=== PATIENT | female | born 1985 | race Two or more races ===

== ENCOUNTER 2021-01-24 09:54 | Observation (INO) | payer MEDICAID ==
[2021-01-24] MEDS ORDERED: Famotidine 20 MG/2 ML SDV IVPUSH ONE (10:12)
[2021-01-24] MEDS ORDERED: Sodium Chloride 0.9% 1,000 ML IV ONE (10:12)
[2021-01-24] MEDS ORDERED: Ondansetron 4 MG/2 ML SDV IVPUSH ONE (10:12)
[2021-01-24] MEDS ORDERED: Sodium Chloride 0.9% 10 ML Syringe FLUSH PRN (10:12)
--- NOTE | 2021-01-24 10:32 | EDM.PDOC ---
ED HPI GENERAL MEDICAL PROBLEM - General Chief Complaint: Gastrointestinal Problem Stated Complaint: [facility] Time Seen by Provider: 01/24/21 10:11 Source of Information: Reports: Patient History Limitations: Reports: No Limitations - History of Present Illness INITIAL COMMENTS - FREE TEXT/NARRATIVE: 35 yo F with vomiting and dizziness this morning. She states she felt fine yesterday. This morning she woke up and felt very nauseated, had many episodes of vomiting. She also had some mild diarrhea. Mild lower abdominal cramping in context of her current menses. Still feels very nauseated. Feels weak/dizzy. No ear pain or tinnitus. No recent illness. No known provoking factor. No fever. No known ill contacts. No cough/SOB. No dysuria. Unable to tolerate PO liquids this morning. 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: Social & Family History - Tobacco Use Tobacco Use Status *Q: Never Tobacco User - Recreational Drug Use Recreational Drug Use: No ED ROS GENERAL - Review of Systems Review Of Systems: See Below Constitutional: Denies: Fever HEENT: Reports: No Symptoms Respiratory: Denies: Cough Cardiovascular: Reports: No Symptoms Endocrine: Reports: Fatigue GI/Abdominal: Reports: Nausea, Vomiting : Denies: Dysuria Musculoskeletal: Reports: No Symptoms Skin: Reports: No Symptoms Neurological: Reports: Dizziness Psychiatric: Reports: No Symptoms Hematologic/Lymphatic: Reports: No Symptoms Immunologic: Reports: No Symptoms ED EXAM, GI/ABD - Physical Exam Exam: See Below Exam Limited By: No Limitations General Appearance: Alert, WD/WN, No Apparent Distress Eyes: Bilateral: Normal Appearance, Nystagmus (horizontal, constant) Ears: Normal External Exam Nose: Normal Inspection Throat/Mouth: Normal Inspection, Normal Lips, Normal Voice Head: Atraumatic, Normocephalic Neck: Normal Inspection, Supple Respiratory/Chest: No Respiratory Distress, No Accessory Muscle Use, Chest Non- Tender Cardiovascular: Normal Peripheral Pulses, Regular Rate, Rhythm, No Edema GI/Abdominal Exam: Soft, Non-Tender, No Distention Extremities: Normal Inspection Neurological: Alert, Oriented, CN II-XII Intact, Normal Cognition, Other (difficult to assess coordination as she remains very dizzy) Psychiatric: Normal Affect, Normal Mood Skin Exam: Warm, Dry, Intact, Normal Color Course - Vital Signs Last Recorded V/S: Last Vital Signs Temp 35.6 C L 01/24/21 10:02 Pulse 73 01/24/21 10:02 Resp 18 01/24/21 10:02 BP 122/71 01/24/21 10:02 Pulse Ox 98 01/24/21 10:02 - Orders/Labs/Meds Orders: Active Orders 24 hr Category Date Time Status Peripheral IV Care [RC] . DIRECTED Care 01/24/21 10:12 Active Peripheral IV Care [RC] . DIRECTED Care 01/24/21 10:12 Active Sodium Chloride 0.9% [Saline Flush] Med 01/24/21 10:12 Active 10 ml FLUSH ASDIRECTED PRN Peripheral IV Insertion Adult [OM.PC] Routine Oth 01/24/21 10:12 Ordered Medication Orders Sodium Chloride (Sodium Chloride 0.9% 10 Ml Syringe) 10 ml FLUSH ASDIRECTED PRN PRN Reason: Keep Vein Open Last Admin: 01/24/21 10:19 Dose: 10 ml Documented by: LEONELA Labs: Laboratory Tests 01/24/21 01/24/21 01/24/21 Range/Units 10:30 10:30 13:25 WBC 6.05 (3.98-10.04) K/mm3 RBC 4.80 (3.98-5.22) M/mm3 Hgb 10.0 L (11.2-15.7) gm/dl Hct 33.4 L (34.1-44.9) % MCV 69.6 L D (79.4-94.8) fl MCH 20.8 L (25.6-32.2) pg MCHC 29.9 L (32.2-35.5) g/dl RDW Std Deviation 47.0 H (36.4-46.3) fL Plt Count 218 (182-369) K/mm3 MPV 10.2 (9.4-12.3) fl Neut % (Auto) 81.7 H (34.0-71.1) % Lymph % (Auto) 12.9 L (19.3-51.7) % [place] % (Auto) 4.8 (4.7-12.5) % Eos % (Auto) 0.3 L (0.7-5.8) Baso % (Auto) 0.3 (0.1-1.2) % Neut # (Auto) 4.94 (1.56-6.13) K/mm3 Lymph # (Auto) 0.78 L (1.18-3.74) K/mm3 [place] # (Auto) 0.29 (0.24-0.36) K/mm3 Eos # (Auto) 0.02 L (0.04-0.36) K/mm3 Baso # (Auto) 0.02 (0.01-0.08) K/mm3 Manual Slide Review Abnormal smear Sodium 141 (136-145) mEq/L Potassium 3.4 L (3.5-5.1) mEq/L Chloride 106 (98-107) mEq/L Carbon Dioxide 26 (21-32) mEq/L Anion Gap 12.4 (5-15) BUN 9 (7-18) mg/dL Creatinine 0.9 (0.55-1.02) mg/dL Est Cr Clr Drug Dosing 77.01 mL/min Estimated GFR (MDRD) > 60 (>60) mL/min BUN/Creatinine Ratio 10.0 L (14-18) Glucose 139 H (70-99) mg/dL Calcium 8.3 L (8.5-10.1) mg/dL Magnesium 1.9 (1.8-2.4) mg/dL Total Bilirubin 0.6 (0.2-1.0) mg/dL AST 37 (15-37) U/L ALT 17 (14-59) U/L Alkaline Phosphatase 89 (46-116) U/L Total Protein 7.6 (6.4-8.2) g/dl Albumin 3.5 (3.4-5.0) g/dl Globulin 4.1 gm/dL Albumin/Globulin Ratio 0.9 L (1-2) Lipase 65 L (73-393) U/L HCG, Quant < 1.0 mIU/mL Urine Color [place] H (Yellow) Urine Appearance Cloudy H (Clear) Urine pH 6.0 (5.0-8.0) Ur Specific [place] 1.025 (1.005-1.030) Urine Protein 1+ H (Negative) Urine Glucose (UA) Negative (Negative) Urine Ketones Negative (Negative) Urine Occult Blood 3+ H (Negative) Urine Nitrite Negative (Negative) Urine Bilirubin 1+ H (Negative) Urine Urobilinogen 1.0 (0.2-1.0) Ur Leukocyte Esterase Negative (Negative) Urine RBC Too numerous to cnt H (0-5) /hpf Urine WBC 0-5 (0-5) /hpf Ur Squamous Epith Cells 0-5 (0-5) /hpf Urine Bacteria Few (FEW) /hpf Urine Mucus Few (FEW) /hpf Meds: Medications Generic Name Dose Route Start Last Admin Trade Name Freq PRN Reason Stop Dose Admin Sodium Chloride 10 ml 01/24/21 10:12 01/24/21 10:19 Sodium Chloride 0.9% 10 Ml Syringe FLUSH 10 ml ASDIRECTED PRN Administration Keep Vein Open Discontinued Medications Generic Name Dose Route Start Last Admin Trade Name Freq PRN Reason Stop Dose Admin Famotidine 20 mg 01/24/21 10:12 01/24/21 10:19 Famotidine 20 Mg/2 Ml Sdv IVPUSH 01/24/21 10:13 20 mg ONETIME ONE Administration Sodium Chloride 1,000 mls @ 1,000 mls/hr 01/24/21 10:12 01/24/21 10:19 Normal Saline IV 01/24/21 11:11 1,000 mls/hr ONETIME ONE Administration Promethazine HCl 12.5 mg/ 50.5 mls @ 100 mls/hr 01/24/21 11:50 01/24/21 12:06 Sodium Chloride IV 01/24/21 12:20 100 mls/hr ONETIME ONE Administration Meclizine HCl 12.5 mg 01/24/21 13:32 01/24/21 13:36 Meclizine 12.5 Mg Tab PO 01/24/21 13:33 12.5 mg ONETIME ONE Administration Ondansetron HCl 4 mg 01/24/21 10:12 01/24/21 10:19 Ondansetron 4 Mg/2 Ml Sdv IVPUSH 01/24/21 10:13 4 mg ONETIME ONE Administration - Re-Assessments/Exams Free Text/Narrative Re-Assessment/Exam: 01/24/21 11:51 Labs unremarkable. No vomiting in the ED after zofran/IV fluids but still feels nauseated. Will give phenergan and reassess. Continues to deny headache or abdominal pain. 01/24/21 14:21 Continues to have marked dizziness. She continues to have significant horizontal nystagmus. She is too dizzy to walk. We will further eval with MRI brain. 01/24/21 16:36 Given persistent severe vertigo with no improvement s/p fluids/meds, we proceeded with MRI brain which showed no acute abnormality. She continues to be dizzy and unsteady on her feet. Discussed with hospitalist Dr. Valderrama who agrees to admit the patient. Departure - Departure Time of Disposition: 15:58 Disposition: Admitted As Inpatient 64 Clinical Impression: Vertigo Nausea & vomiting Qualifiers: Vomiting type: unspecified Vomiting Intractability: non-intractable Qualified Code(s): R11.2 - Nausea with vomiting, unspecified - Discharge Information Prescriptions: Meclizine [Antivert] 25 mg PO Q6H PRN #24 tab PRN Reason: Dizziness Ondansetron [Ondansetron ODT] 4 mg PO Q6H PRN #12 tab.rapdis PRN Reason: Nausea/Vomiting Referrals: Moni Kendall [Primary Care Provider] - Forms: ED Department Discharge Additional Instructions: 1. Drink plenty of fluids. Start with clear liquids, such as gatorade, pedialyte, sprite, water, broth, etc. Once nausea improves try bland foods. 2. Take ondansetron as prescribed for nausea. 3. Follow up with your regular doctor when able. 4. Return to the ED if you have severe nausea/vomiting, abdominal pain, headache, fever, or other concerning symptoms. Sepsis Event Note (ED) - Evaluation Sepsis Screening Result: No Definite Risk - Focused Exam Vital Signs: Vital Signs Temp Pulse Resp BP Pulse Ox 01/24/21 10:02 35.6 C L 73 18 122/71 98 - My Orders Last 24 Hours: My Active Orders 01/24/21 10:12 Peripheral IV Care [RC] . DIRECTED Peripheral IV Care [RC] . DIRECTED Sodium Chloride 0.9% [Saline Flush] 10 ml FLUSH ASDIRECTED PRN Peripheral IV Insertion Adult [OM.PC] Routine - Assessment/Plan Last 24 Hours: My Active Orders 01/24/21 10:12 Peripheral IV Care [RC] . DIRECTED Peripheral IV Care [RC] . DIRECTED Sodium Chloride 0.9% [Saline Flush] 10 ml FLUSH ASDIRECTED PRN Peripheral IV Insertion Adult [OM.PC] Routine
[2021-01-24] MEDS ORDERED: Promethazine 12.5 MG in Sodium Chloride 0.9% 50 ML IV ONE (11:50)
[2021-01-24] MEDS ORDERED: Meclizine 12.5 MG Tab PO ONE (13:32)
--- NOTE | 2021-01-24 15:15 | MR ---
MRI brain Technique: T1 sagittal; T2, T2 FLAIR, T1 and diffusion axial; T1 FLAIR coronal images were obtained. Thin sections through the internal auditory canals were obtained utilizing gradient echo imaging. Comparison: No prior intracranial imaging is available. Findings: Ventricles along with basal cisterns and sulci over the convexities are within normal limits for the patient's age. Artifact is noted from the right facial structures presumably due to dental hardware. No abnormal signal is appreciated within the ventricular system. No midline shift or mass-effect is seen. There are no acute diffusion abnormalities being seen. Internal auditory canal shows no discrete abnormality. Visualized paranasal sinuses and mastoid sinuses show nothing acute. Impression: 1. Slight artifact as noted above which does not interfere with intracranial imaging. 2. Other portions of the MRI study of the brain appear within normal limits. No etiology is identified to explain the patient's severe vertigo. Diagnostic code #1
[2021-01-24] MEDS ORDERED: LORazepam 0.5 MG Tab PO PRN (16:50)
[2021-01-24] MEDS ORDERED: Acetaminophen 325 MG Tab PO PRN (16:50)
[2021-01-24] MEDS ORDERED: Ondansetron 4 MG Tab.DIS PO PRN (16:50)
[2021-01-24] MEDS ORDERED: Ondansetron 4 MG/2 ML SDV IV PRN (16:50)
--- NOTE | 2021-01-24 16:50 | PCM.HP.2 ---
H&P History of Present Illness - General Date of Service: 01/24/21 Admit Problem/Dx: Dizziness with nausea and vomiting and dehydration. Source of Information: Patient History Limitations: Reports: No Limitations - History of Present Illness Initial Comments - Free Text/Narative: The patient is a 35-year-old lady who has presented to the emergency department out of concern for severe dizziness. The patient reports that her symptoms started yesterday evening suddenly with dizziness. The patient also had severe nausea and vomiting associated with this. The patient has denied any fever or chills. The patient is not taking any medications currently. She has denied tobacco or alcohol use. The patient says that the symptoms have improved when her eyes are closed. Onset of Symptoms: Reports: Sudden Duration of Symptoms: Reports: Day(s): Location: Reports: Generalized Severity: Moderate Improves with: Reports: Other (Closing eyes) Worsens with: Reports: Movement Associated Symptoms: Reports: Nausea/Vomiting - Related Data Allergies/Adverse Reactions: Allergies Allergy/AdvReac Type Severity Reaction Status Date / Time No Known Allergies Allergy Verified 01/24/21 10:08 Home Medications: Home Meds Meclizine [Antivert] 25 mg PO Q6H PRN #24 tab 01/24/21 [Rx] Ondansetron [Ondansetron ODT] 4 mg PO Q6H PRN #12 tab.rapdis 01/24/21 [Rx] Past Medical History - Past Health History Medical/Surgical History: Denies Medical/Surgical History HEENT History: Reports: None Cardiovascular History: Reports: None Respiratory History: Reports: None Gastrointestinal History: Reports: None 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 History: Reports: 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: Musculoskeletal History: Reports: None Neurological History: Reports: None Psychiatric History: Reports: None Endocrine/Metabolic History: Reports: None Hematologic History: Reports: None Immunologic History: Reports: None Dermatologic History: Reports: None Social & Family History - Tobacco Use Tobacco Use Status *Q: Never Tobacco User - Alcohol Use Alcohol Use History: No - Recreational Drug Use Recreational Drug Use: No - Living Situation & Occupation Living situation: Reports: , with Spouse Occupation: Unemployed H&P Review of Systems - Review of Systems: Review Of Systems: See Below General: Reports: Weakness HEENT: Reports: Vertigo Pulmonary: Reports: No Symptoms Cardiovascular: Reports: No Symptoms Gastrointestinal: Reports: Nausea, Vomiting 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: Reports: No Symptoms Musculoskeletal: Reports: No Symptoms Skin: Reports: No Symptoms Psychiatric: Reports: No Symptoms Neurological: Reports: Dizziness Hematologic/Lymphatic: Reports: No Symptoms Immunologic: Reports: No Symptoms Exam - Exam Exam: See Below - Vital Signs Vital Signs: Last Vital Signs Temp 35.6 C L 01/24/21 10:02 Pulse 73 01/24/21 10:02 Resp 18 01/24/21 10:02 BP 122/71 01/24/21 10:02 Pulse Ox 98 01/24/21 10:02 Weight: 104.326 kg - Exam Quality Assessment: No: Supplemental Oxygen, DVT Prophylaxis General: Alert, Oriented, Cooperative, Mild Distress HEENT: Conjunctiva Clear, EACs Clear, Hearing Intact, PERRLA. No: EOMI (Slow horizontal nystagmus both eyes), Mucosa Moist & [place] (Dry) Neck: Supple, Trachea Midline Lungs: Clear to Auscultation, Normal Respiratory Effort Cardiovascular: Regular Rate, Regular Rhythm GI/Abdominal Exam: Normal Bowel Sounds, Soft, Non-Tender, No Distention (Female) Exam: Deferred Rectal (Female) Exam: Deferred Back Exam: Normal Inspection, Full Range of Motion Extremities: Normal Inspection, Normal Range of Motion, No Pedal Edema Skin: Warm, Dry, Intact Neurological: Cranial Nerves Intact, Strength Equal Bilateral, Normal Speech. No: Normal Gait, Focal Deficit Neuro Extensive - Mental Status: Alert, Oriented x3, Normal Mood/Affect, Memory Intact Psychiatric: Alert, Normal Affect, Normal Mood - Patient Data Lab Results Last 24 hrs: Laboratory Results - last 24 hr 01/24/21 01/24/21 01/24/21 Range/Units 10:30 10:30 13:25 WBC 6.05 (3.98-10.04) K/mm3 RBC 4.80 (3.98-5.22) M/mm3 Hgb 10.0 L (11.2-15.7) gm/dl Hct 33.4 L (34.1-44.9) % MCV 69.6 L D (79.4-94.8) fl MCH 20.8 L (25.6-32.2) pg MCHC 29.9 L (32.2-35.5) g/dl RDW Std Deviation 47.0 H (36.4-46.3) fL Plt Count 218 (182-369) K/mm3 MPV 10.2 (9.4-12.3) fl Neut % (Auto) 81.7 H (34.0-71.1) % Lymph % (Auto) 12.9 L (19.3-51.7) % [place] % (Auto) 4.8 (4.7-12.5) % Eos % (Auto) 0.3 L (0.7-5.8) Baso % (Auto) 0.3 (0.1-1.2) % Neut # (Auto) 4.94 (1.56-6.13) K/mm3 Lymph # (Auto) 0.78 L (1.18-3.74) K/mm3 [place] # (Auto) 0.29 (0.24-0.36) K/mm3 Eos # (Auto) 0.02 L (0.04-0.36) K/mm3 Baso # (Auto) 0.02 (0.01-0.08) K/mm3 Manual Slide Review Abnormal smear Sodium 141 (136-145) mEq/L Potassium 3.4 L (3.5-5.1) mEq/L Chloride 106 (98-107) mEq/L Carbon Dioxide 26 (21-32) mEq/L Anion Gap 12.4 (5-15) BUN 9 (7-18) mg/dL Creatinine 0.9 (0.55-1.02) mg/dL Est Cr Clr Drug Dosing 77.01 mL/min Estimated GFR (MDRD) > 60 (>60) mL/min BUN/Creatinine Ratio 10.0 L (14-18) Glucose 139 H (70-99) mg/dL Calcium 8.3 L (8.5-10.1) mg/dL Magnesium 1.9 (1.8-2.4) mg/dL Total Bilirubin 0.6 (0.2-1.0) mg/dL AST 37 (15-37) U/L ALT 17 (14-59) U/L Alkaline Phosphatase 89 (46-116) U/L Total Protein 7.6 (6.4-8.2) g/dl Albumin 3.5 (3.4-5.0) g/dl Globulin 4.1 gm/dL Albumin/Globulin Ratio 0.9 L (1-2) Lipase 65 L (73-393) U/L HCG, Quant < 1.0 mIU/mL Urine Color [place] H (Yellow) Urine Appearance Cloudy H (Clear) Urine pH 6.0 (5.0-8.0) Ur Specific [place] 1.025 (1.005-1.030) Urine Protein 1+ H (Negative) Urine Glucose (UA) Negative (Negative) Urine Ketones Negative (Negative) Urine Occult Blood 3+ H (Negative) Urine Nitrite Negative (Negative) Urine Bilirubin 1+ H (Negative) Urine Urobilinogen 1.0 (0.2-1.0) Ur Leukocyte Esterase Negative (Negative) Urine RBC Too numerous to cnt H (0-5) /hpf Urine WBC 0-5 (0-5) /hpf Ur Squamous Epith Cells 0-5 (0-5) /hpf Urine Bacteria Few (FEW) /hpf Urine Mucus Few (FEW) /hpf Result Diagrams: 01/24/21 10:30 01/24/21 10:30 Sepsis Event Note - Evaluation Sepsis Screening Result: No Definite Risk - Focused Exam Vital Signs: Vital Signs Temp Pulse Resp BP Pulse Ox 01/24/21 10:02 35.6 C L 73 18 122/71 98 - Problem List (1) Vertigo SNOMED Code(s): 634051861 ICD Code: R42 - DIZZINESS AND GIDDINESS Status: Acute Priority: High Current Visit: Yes (2) Dehydration SNOMED Code(s): 30493741 ICD Code: E86.0 - DEHYDRATION Status: Acute Priority: High Current Visit: Yes (3) Anemia SNOMED Code(s): 327877251 ICD Code: D64.9 - ANEMIA, UNSPECIFIED Status: Acute Current Visit: Yes Problem Details: Microcytic, hypochromatic Qualifiers: Anemia type: iron deficiency Iron deficiency anemia type: unspecified iron deficiency Qualified Code(s): D50.9 - Iron deficiency anemia, unspecified (4) Nausea & vomiting SNOMED Code(s): 06409949 ICD Code: R11.2 - NAUSEA WITH VOMITING, UNSPECIFIED Status: Acute Priority: High Current Visit: Yes Qualifiers: Vomiting type: unspecified Vomiting Intractability: unspecified Qualified Code(s): R11.2 - Nausea with vomiting, unspecified (5) Hypokalemia due to excessive gastrointestinal loss of potassium SNOMED Code(s): 91222078 ICD Code: E87.6 - HYPOKALEMIA Status: Acute Priority: High Current Visit: Yes Problem List Initiated/Reviewed/Updated: Yes Orders Last 24hrs: Active Orders 24 hr Category Date Time Status Peripheral IV Care [RC] . DIRECTED Care 01/24/21 10:12 Active Peripheral IV Care [RC] . DIRECTED Care 01/24/21 10:12 Active Sodium Chloride 0.9% [Saline Flush] Med 01/24/21 10:12 Active 10 ml FLUSH ASDIRECTED PRN Peripheral IV Insertion Adult [OM.PC] Routine Oth 01/24/21 10:12 Ordered Medication Orders Sodium Chloride (Sodium Chloride 0.9% 10 Ml Syringe) 10 ml FLUSH ASDIRECTED PRN PRN Reason: Keep Vein Open Last Admin: 01/24/21 10:19 Dose: 10 ml Documented by: LEONELA Assessment/Plan Comment:: The patient is an otherwise healthy 35-year-old lady who has been admitted to observation for intractable vertigo which has resulted in nausea and vomiting. The patient is also hypokalemic due to GI loss and this is been replaced. The patient also will have Ativan and meclizine to help control the vertigo. I have also ordered physical therapy for vestibular training. Repeat laboratory studies have also been ordered for the morning. The patient is also anemic and differential resembles iron deficiency. Her anemia is microcytic and hypochromatic. Her hemoglobin will be monitored. If her hemoglobin drops below 7.0 g/dL will consider transfusion. Also she has hematuria and this likely related to her menstrual cycle. The patient should be appropriate for discharge once her symptoms have been controlled. - Mortality Measure Prognosis:: Good
[2021-01-24] MEDS ORDERED: Sodium Chloride 0.9% 1,000 ML IV SCH (17:00)
[2021-01-24] MEDS ORDERED: Potassium Bicarbonate/Cit Ac 20 MEQ Effervescent Tab PO ONE ×2 (17:30→21:30)
[2021-01-24] MEDS ORDERED: Temazepam 7.5 MG Cap PO PRN (21:00)
[2021-01-25] MEDS ORDERED: FLUoxetine 20 MG Cap PO SCH (09:00)
[2021-01-25] MEDS ORDERED: Enoxaparin 30 MG/0.3 ML Syringe SUBCUT SCH (09:00)
--- NOTE | 2021-01-25 11:18 | PCM.DCSUM1 ---
<Nader Sullivan - Last Filed: 01/25/21 11:35> Discharge Summary - Hospital Course HPI Initial Comments: The patient is a 35-year-old lady who has presented to the emergency department out of concern for severe dizziness. The patient reports that her symptoms started yesterday evening suddenly with dizziness. The patient also had severe nausea and vomiting associated with this. The patient has denied any fever or chills. The patient is not taking any medications currently. She has denied tobacco or alcohol use. The patient says that the symptoms have improved when her eyes are closed. Diagnosis: Stroke: No - Discharge Data Discharge Date: 01/25/21 (Admit date: 01/24/2021) Discharge Disposition: Home, Self-Care 01 Condition: Good - Referral to Home Health Primary Care Physician: Moni Kendall - Discharge Diagnosis/Problem(s) (1) Anemia SNOMED Code(s): 499526153 ICD Code: D64.9 - ANEMIA, UNSPECIFIED Status: Chronic Priority: Medium Problem Details: Microcytic, hypochromatic Qualifiers: Anemia type: iron deficiency Iron deficiency anemia type: unspecified iron deficiency Qualified Code(s): D50.9 - Iron deficiency anemia, unspecified (2) Dehydration SNOMED Code(s): 27639821 ICD Code: E86.0 - DEHYDRATION Status: Resolved Priority: High (3) Hypokalemia due to excessive gastrointestinal loss of potassium SNOMED Code(s): 89316283 ICD Code: E87.6 - HYPOKALEMIA Status: Resolved Priority: High (4) Nausea & vomiting SNOMED Code(s): 94977212 ICD Code: R11.2 - NAUSEA WITH VOMITING, UNSPECIFIED Status: Resolved Priority: High Qualifiers: Vomiting type: unspecified Vomiting Intractability: unspecified Qualified Code(s): R11.2 - Nausea with vomiting, unspecified (5) Vertigo SNOMED Code(s): 880755599 ICD Code: R42 - DIZZINESS AND GIDDINESS Status: Resolved Priority: High - Patient Summary/Data Consults: Consultations 01/24/21 16:50 PT Evaluation and Treatment [CONS] Routine 01/25/21 07:31 Consult to Case Management/Cosmetic Assembler [CONS] Routine Labs Pending at D/C: None Recommended Follow-up Testing/Procedures: Follow-up with primary care provider within 7 to 10 days of discharge, sooner if needed. -Recommend repeat CBC, CMP, and magnesium. -Patient was prescribed meclizine and Zofran as needed -Holland-Hallpike maneuver was negative. Hospital Course: This is a 35-year-old female who presents to ED on 01/24/2021 with intractable nausea and vomiting secondary to vertigo. In the ED she is noted to be anemic with a hemoglobin of 10.0. She is also noted to be hypokalemia and a bit dehydrated. UA is negative however occult blood is noted however patient reports she is on her menses. She started on meclizine and Zofran as needed with good response. PT did evaluate her with a Holland-Hallpike maneuver which was negative. Potassium was supplemented. Hemoglobin remained stable at 9.8 the next morning. Patient reports she is supposed to be taking daily iron supplementation which she has not been. We discussed importance of taking this iron, especially while on her menses and she reported that she will be better about taking it. Today she felt good and was able to eat a full meal without difficulty. She does report very mild nausea but states this is certainly something she can deal with at home. She will be prescribed as needed meclizine for dizziness and as needed Zofran for nausea. Recommend patient follow-up with her primary care provider within 7 to 10 days of discharge, sooner if needed. Recommend repeat CBC, CMP, and magnesium at that visit, paying special attention to potassium. Patient advised to contact primary care provider return the emergency room should symptoms return or worsen. Discharged home today. Of note: There were some issues with patient having no one to care for her children while she was hospitalized. Social work was involved in this and did find proper temporary placement. - Patient Instructions Diet: Usual Diet as Tolerated Activity: As Tolerated Driving: Do Not Drive (today or when dizzy) Showering/Bathing: May Shower Notify Provider of: Fever, Increased Pain, Nausea and/or Vomiting Other/Special Instructions: Follow-up with primary care provider within 7 to 10 days of discharge, sooner if needed. You were prescribed as needed meclizine which is a medication that can help with your dizziness. You may take this every 12 hours as needed. You were also prescribed a medication for nausea called Zofran. You may take this as needed. Recommend you resume your home iron supplementation. You should take this daily. This is especially important around your period. Resume all other home medications. Should symptoms return or worsen contact primary care provider or return to the Emergency Department. - Discharge Plan *PRESCRIPTION DRUG MONITORING PROGRAM REVIEWED*: No *COPY OF PRESCRIPTION DRUG MONITORING REPORT IN PATIENT STAR: No Prescriptions/Med Rec: Meclizine [Antivert] 25 mg PO Q12H PRN #10 tab.chew PRN Reason: Dizziness Ondansetron [Zofran ODT] 4 mg PO Q4H PRN #10 tab.dis PRN Reason: nausea Home Medications: Home Meds FLUoxetine HCl [Prozac] 20 mg PO DAILY 01/24/21 [History] Meclizine [Antivert] 25 mg PO Q12H PRN #10 tab.chew 01/25/21 [Rx] Ondansetron [Zofran ODT] 4 mg PO Q4H PRN #10 tab.dis 01/25/21 [Rx] Oxygen Therapy Mode: Room Air Patient Handouts: Vertigo, [id number], Nausea and Vomiting, Adult, [id number], Dizziness, [id number] Forms: ED Department Discharge Referrals: Moni Kendall [Primary Care Provider] - (Patient prefers to call & schedule her own follow up appointment, & was advised to be seen within 7-10 days.) - Discharge Summary/Plan Comment DC Time >30 min.: No - General Info Date of Service: 01/25/21 Admission Dx/Problem (Free Text: Dizziness with nausea and vomiting and dehydration. Functional Status: Reports: Pain Controlled, Tolerating Diet, Ambulating, Urinating. Denies: New Symptoms - Review of Systems General: Reports: No Symptoms. Denies: Fever, Weakness, Fatigue, Malaise, Chills HEENT: Reports: No Symptoms. Denies: Post Nasal Drip, Sore Throat, Visual Changes Pulmonary: Reports: No Symptoms. Denies: Shortness of Breath, Pleuritic Chest Pain, Cough, Sputum, Hemoptysis, Wheezing Cardiovascular: Reports: No Symptoms. Denies: Chest Pain, Palpitations, Dyspnea on Exertion, Edema Gastrointestinal: Reports: No Symptoms. Denies: Abdominal Pain, Constipation, Decreased Appetite, Diarrhea, Nausea, Vomiting 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: Reports: No Symptoms. Denies: Pain Musculoskeletal: Reports: No Symptoms Skin: Reports: No Symptoms. Denies: Cyanosis Neurological: Reports: Dizziness (Very mild ). Denies: Confusion, Headache, Numbness, Seizure, Syncope, Tingling, Difficulty Walking, Weakness, Gait Disturbance Psychiatric: Reports: No Symptoms - Patient Data Vitals - Most Recent: Last Vital Signs Temp 98.1 F 01/25/21 08:05 Pulse 56 L 01/25/21 08:05 Resp 20 01/25/21 08:05 BP 113/82 01/25/21 08:05 Pulse Ox 99 01/25/21 08:05 Weight - Most Recent: 102.784 kg I&O - Last 24 hours: Intake & Output 01/24/21 01/25/21 01/25/21 22:59 06:59 14:59 Intake Total 722 Output Total 350 Balance 372 Lab Results - Last 24 hrs: Laboratory Results - last 24 hr 01/24/21 01/24/21 01/24/21 Range/Units 10:30 10:30 13:25 WBC (3.98-10.04) K/mm3 RBC (3.98-5.22) M/mm3 Hgb (11.2-15.7) gm/dl Hct (34.1-44.9) % MCV (79.4-94.8) fl MCH (25.6-32.2) pg MCHC (32.2-35.5) g/dl RDW Std Deviation (36.4-46.3) fL Plt Count (182-369) K/mm3 MPV (9.4-12.3) fl Neut % (Auto) (34.0-71.1) % Lymph % (Auto) (19.3-51.7) % [place] % (Auto) (4.7-12.5) % Eos % (Auto) (0.7-5.8) Baso % (Auto) (0.1-1.2) % Neut # (Auto) (1.56-6.13) K/mm3 Lymph # (Auto) (1.18-3.74) K/mm3 [place] # (Auto) (0.24-0.36) K/mm3 Eos # (Auto) (0.04-0.36) K/mm3 Baso # (Auto) (0.01-0.08) K/mm3 Manual Slide Review Abnormal smear Sodium 141 (136-145) mEq/L Potassium 3.4 L (3.5-5.1) mEq/L Chloride 106 (98-107) mEq/L Carbon Dioxide 26 (21-32) mEq/L Anion Gap 12.4 (5-15) BUN 9 (7-18) mg/dL Creatinine 0.9 (0.55-1.02) mg/dL Est Cr Clr Drug Dosing 77.01 mL/min Estimated GFR (MDRD) > 60 (>60) mL/min BUN/Creatinine Ratio 10.0 L (14-18) Glucose 139 H (70-99) mg/dL Calcium 8.3 L (8.5-10.1) mg/dL Magnesium 1.9 (1.8-2.4) mg/dL Total Bilirubin 0.6 (0.2-1.0) mg/dL AST 37 (15-37) U/L ALT 17 (14-59) U/L Alkaline Phosphatase 89 (46-116) U/L Total Protein 7.6 (6.4-8.2) g/dl Albumin 3.5 (3.4-5.0) g/dl Globulin 4.1 gm/dL Albumin/Globulin Ratio 0.9 L (1-2) Lipase 65 L (73-393) U/L HCG, Quant < 1.0 mIU/mL Urine Color [place] H (Yellow) Urine Appearance Cloudy H (Clear) Urine pH 6.0 (5.0-8.0) Ur Specific [place] 1.025 (1.005-1.030) Urine Protein 1+ H (Negative) Urine Glucose (UA) Negative (Negative) Urine Ketones Negative (Negative) Urine Occult Blood 3+ H (Negative) Urine Nitrite Negative (Negative) Urine Bilirubin 1+ H (Negative) Urine Urobilinogen 1.0 (0.2-1.0) Ur Leukocyte Esterase Negative (Negative) Urine RBC Too numerous to cnt H (0-5) /hpf Urine WBC 0-5 (0-5) /hpf Ur Squamous Epith Cells 0-5 (0-5) /hpf Urine Bacteria Few (FEW) /hpf Urine Mucus Few (FEW) /hpf SARS-CoV-2 RNA (TRUNG) (NEGATIVE) 01/24/21 01/25/21 01/25/21 Range/Units 17:00 04:50 04:50 WBC 7.84 (3.98-10.04) K/mm3 RBC 4.69 (3.98-5.22) M/mm3 Hgb 9.8 L (11.2-15.7) gm/dl Hct 32.8 L (34.1-44.9) % MCV 69.9 L (79.4-94.8) fl MCH 20.9 L (25.6-32.2) pg MCHC 29.9 L (32.2-35.5) g/dl RDW Std Deviation 47.9 H (36.4-46.3) fL Plt Count 227 (182-369) K/mm3 MPV 10.5 (9.4-12.3) fl Neut % (Auto) 72.7 H (34.0-71.1) % Lymph % (Auto) 19.6 (19.3-51.7) % [place] % (Auto) 7.1 (4.7-12.5) % Eos % (Auto) 0.3 L (0.7-5.8) Baso % (Auto) 0.3 (0.1-1.2) % Neut # (Auto) 5.70 (1.56-6.13) K/mm3 Lymph # (Auto) 1.54 (1.18-3.74) K/mm3 [place] # (Auto) 0.56 H (0.24-0.36) K/mm3 Eos # (Auto) 0.02 L (0.04-0.36) K/mm3 Baso # (Auto) 0.02 (0.01-0.08) K/mm3 Manual Slide Review Sodium 145 (136-145) mEq/L Potassium 3.7 (3.5-5.1) mEq/L Chloride 109 H (98-107) mEq/L Carbon Dioxide 29 (21-32) mEq/L Anion Gap 10.7 (5-15) BUN 8 (7-18) mg/dL Creatinine 0.9 (0.55-1.02) mg/dL Est Cr Clr Drug Dosing 73.90 mL/min Estimated GFR (MDRD) > 60 (>60) mL/min BUN/Creatinine Ratio 8.9 L (14-18) Glucose 83 (70-99) mg/dL Calcium 8.5 (8.5-10.1) mg/dL Magnesium (1.8-2.4) mg/dL Total Bilirubin (0.2-1.0) mg/dL AST (15-37) U/L ALT (14-59) U/L Alkaline Phosphatase (46-116) U/L Total Protein (6.4-8.2) g/dl Albumin (3.4-5.0) g/dl Globulin gm/dL Albumin/Globulin Ratio (1-2) Lipase (73-393) U/L HCG, Quant mIU/mL Urine Color (Yellow) Urine Appearance (Clear) Urine pH (5.0-8.0) Ur Specific [place] (1.005-1.030) Urine Protein (Negative) Urine Glucose (UA) (Negative) Urine Ketones (Negative) Urine Occult Blood (Negative) Urine Nitrite (Negative) Urine Bilirubin (Negative) Urine Urobilinogen (0.2-1.0) Ur Leukocyte Esterase (Negative) Urine RBC (0-5) /hpf Urine WBC (0-5) /hpf Ur Squamous Epith Cells (0-5) /hpf Urine Bacteria (FEW) /hpf Urine Mucus (FEW) /hpf SARS-CoV-2 RNA (TRUNG) Negative (NEGATIVE) Med Orders - Current: Current Medications Acetaminophen (Acetaminophen 325 Mg Tab) 650 mg PO Q4H PRN PRN Reason: Pain (Mild 1-3)/fever Last Admin: 01/25/21 11:07 Dose: 650 mg Documented by: Enoxaparin Sodium (Enoxaparin 30 Mg/0.3 Ml Syringe) 30 mg SUBCUT DAILY [facility] Last Admin: 01/25/21 08:59 Dose: Not Given Documented by: Fluoxetine HCl (Fluoxetine 20 Mg Cap) 20 mg PO DAILY [facility] Lorazepam (Lorazepam 0.5 Mg Tab) 0.5 mg PO Q12H PRN PRN Reason: Dizziness Meclizine HCl (Meclizine 25 Mg Tab.Chew) 25 mg PO Q12H PRN PRN Reason: Dizziness Ondansetron HCl (Ondansetron 4 Mg Tab.Dis) 4 mg PO Q4H PRN PRN Reason: nausea, able to take PO Ondansetron HCl (Ondansetron 4 Mg/2 Ml Sdv) 4 mg IV Q4H PRN PRN Reason: Nausea/Vomiting Last Admin: 01/24/21 19:47 Dose: 4 mg Documented by: Sodium Chloride (Sodium Chloride 0.9% 10 Ml Syringe) 10 ml FLUSH ASDIRECTED PRN PRN Reason: Keep Vein Open Last Admin: 01/24/21 10:19 Dose: 10 ml Documented by: Temazepam (Temazepam 7.5 Mg Cap) 7.5 mg PO BEDTIME PRN PRN Reason: Sleep Discontinued Medications Famotidine (Famotidine 20 Mg/2 Ml Sdv) 20 mg IVPUSH ONETIME ONE Stop: 01/24/21 10:13 Last Admin: 01/24/21 10:19 Dose: 20 mg Documented by: Sodium Chloride (Normal Saline) 1,000 mls @ 1,000 mls/hr IV ONETIME ONE Stop: 01/24/21 11:11 Last Admin: 01/24/21 10:19 Dose: 1,000 mls/hr Documented by: Promethazine HCl 12.5 mg/ (Sodium Chloride) 50.5 mls @ 100 mls/hr IV ONETIME ONE Stop: 01/24/21 12:20 Last Admin: 01/24/21 12:06 Dose: 100 mls/hr Documented by: Sodium Chloride (Normal Saline) 1,000 mls @ 75 mls/hr IV ASDIRECTED ASHKAN Last Admin: 01/24/21 19:47 Dose: 75 mls/hr Documented by: Meclizine HCl (Meclizine 12.5 Mg Tab) 12.5 mg PO ONETIME ONE Stop: 01/24/21 13:33 Last Admin: 01/24/21 13:36 Dose: 12.5 mg Documented by: Ondansetron HCl (Ondansetron 4 Mg/2 Ml Sdv) 4 mg IVPUSH ONETIME ONE Stop: 01/24/21 10:13 Last Admin: 01/24/21 10:19 Dose: 4 mg Documented by: Potassium Bicarbonate (Potassium Bicarbonate/Cit Ac 20 Meq Effervescent Tab) 20 meq PO ONETIME ONE Stop: 01/24/21 21:31 Last Admin: 01/24/21 22:31 Dose: 20 meq Documented by: - Exam Quality Assessment: Reports: DVT Prophylaxis. Denies: Supplemental Oxygen, Urine Catheter General: Reports: Alert, Oriented, Cooperative, No Acute Distress HEENT: Reports: Pupils Equal, Pupils Reactive, Mucous Membr. Moist/[place] Neck: Reports: Supple, Trachea Midline Lungs: Reports: Clear to Auscultation, Normal Respiratory Effort Cardiovascular: Reports: Regular Rate, Regular Rhythm GI/Abdominal Exam: Normal Bowel Sounds, Soft, Non-Tender, No Distention (Female) Exam: Deferred Rectal (Female) Exam: Deferred Back Exam: Reports: Normal Inspection, Full Range of Motion Extremities: Normal Inspection, Normal Range of Motion, Non-Tender, No Pedal Edema, Normal Capillary Refill Skin: Reports: Warm, Dry, Intact Neurological: Reports: No New Focal Deficit Psy/Mental Status: Reports: Alert, Normal Affect, Normal Mood *Q Meaningful Use (DIS) - VTE *Q VTE Mechanical Contraindications *Q: At Risk for Falls <Khadar Valderrama - Last Filed: 01/25/21 16:36> Discharge Summary - Referral to Home Health Primary Care Physician: Moni Kendall - Discharge Diagnosis/Problem(s) (1) Vertigo SNOMED Code(s): 985532660 ICD Code: R42 - DIZZINESS AND GIDDINESS Status: Resolved Priority: High (2) Dehydration SNOMED Code(s): 02679328 ICD Code: E86.0 - DEHYDRATION Status: Resolved Priority: High (3) Anemia SNOMED Code(s): 663471958 ICD Code: D64.9 - ANEMIA, UNSPECIFIED Status: Chronic Priority: Medium Problem Details: Microcytic, hypochromatic Qualifiers: Anemia type: iron deficiency Iron deficiency anemia type: unspecified iron deficiency Qualified Code(s): D50.9 - Iron deficiency anemia, unspecified (4) Nausea & vomiting SNOMED Code(s): 65150768 ICD Code: R11.2 - NAUSEA WITH VOMITING, UNSPECIFIED Status: Resolved Priority: High Qualifiers: Vomiting type: unspecified Vomiting Intractability: unspecified Qualified Code(s): R11.2 - Nausea with vomiting, unspecified (5) Hypokalemia due to excessive gastrointestinal loss of potassium SNOMED Code(s): 43031100 ICD Code: E87.6 - HYPOKALEMIA Status: Resolved Priority: High - Patient Summary/Data Consults: Consultations 01/24/21 16:50 PT Evaluation and Treatment [CONS] Routine 01/25/21 07:31 Consult to Case Management/Cosmetic Assembler [CONS] Routine Hospital Course: I have seen and examined the patient independently of Nader Sullivan PA-C, and have reviewed the case with him. I have reviewed and agree with the plan and care as outlined by him. Please see orders. - Patient Data Vitals - Most Recent: Last Vital Signs Temp 36.4 C 01/25/21 11:10 Pulse 69 01/25/21 11:10 Resp 18 01/25/21 11:10 BP 121/78 01/25/21 11:10 Pulse Ox 100 01/25/21 11:10 I&O - Last 24 hours: Intake & Output 01/25/21 01/25/21 01/25/21 06:59 14:59 22:59 Intake Total 722 Output Total 350 Balance 372 Lab Results - Last 24 hrs: Laboratory Results - last 24 hr 01/24/21 01/25/21 01/25/21 Range/Units 17:00 04:50 04:50 WBC 7.84 (3.98-10.04) K/mm3 RBC 4.69 (3.98-5.22) M/mm3 Hgb 9.8 L (11.2-15.7) gm/dl Hct 32.8 L (34.1-44.9) % MCV 69.9 L (79.4-94.8) fl MCH 20.9 L (25.6-32.2) pg MCHC 29.9 L (32.2-35.5) g/dl RDW Std Deviation 47.9 H (36.4-46.3) fL Plt Count 227 (182-369) K/mm3 MPV 10.5 (9.4-12.3) fl Neut % (Auto) 72.7 H (34.0-71.1) % Lymph % (Auto) 19.6 (19.3-51.7) % [place] % (Auto) 7.1 (4.7-12.5) % Eos % (Auto) 0.3 L (0.7-5.8) Baso % (Auto) 0.3 (0.1-1.2) % Neut # (Auto) 5.70 (1.56-6.13) K/mm3 Lymph # (Auto) 1.54 (1.18-3.74) K/mm3 [place] # (Auto) 0.56 H (0.24-0.36) K/mm3 Eos # (Auto) 0.02 L (0.04-0.36) K/mm3 Baso # (Auto) 0.02 (0.01-0.08) K/mm3 Manual Slide Review Sodium 145 (136-145) mEq/L Potassium 3.7 (3.5-5.1) mEq/L Chloride 109 H (98-107) mEq/L Carbon Dioxide 29 (21-32) mEq/L Anion Gap 10.7 (5-15) BUN 8 (7-18) mg/dL Creatinine 0.9 (0.55-1.02) mg/dL Est Cr Clr Drug Dosing 73.90 mL/min Estimated GFR (MDRD) > 60 (>60) mL/min BUN/Creatinine Ratio 8.9 L (14-18) Glucose 83 (70-99) mg/dL Calcium 8.5 (8.5-10.1) mg/dL SARS-CoV-2 RNA (TRUNG) Negative (NEGATIVE) Med Orders - Current: Current Medications Discontinued Medications Acetaminophen (Acetaminophen 325 Mg Tab) 650 mg PO Q4H PRN PRN Reason: Pain (Mild 1-3)/fever Last Admin: 01/25/21 11:07 Dose: 650 mg Documented by: Enoxaparin Sodium (Enoxaparin 30 Mg/0.3 Ml Syringe) 30 mg SUBCUT DAILY [facility] Last Admin: 01/25/21 08:59 Dose: Not Given Documented by: Famotidine (Famotidine 20 Mg/2 Ml Sdv) 20 mg IVPUSH ONETIME ONE Stop: 01/24/21 10:13 Last Admin: 01/24/21 10:19 Dose: 20 mg Documented by: Fluoxetine HCl (Fluoxetine 20 Mg Cap) 20 mg PO DAILY A[facility]KAN Sodium Chloride (Normal Saline) 1,000 mls @ 1,000 mls/hr IV ONETIME ONE Stop: 01/24/21 11:11 Last Admin: 01/24/21 10:19 Dose: 1,000 mls/hr Documented by: Promethazine HCl 12.5 mg/ (Sodium Chloride) 50.5 mls @ 100 mls/hr IV ONETIME ONE Stop: 01/24/21 12:20 Last Admin: 01/24/21 12:06 Dose: 100 mls/hr Documented by: Sodium Chloride (Normal Saline) 1,000 mls @ 75 mls/hr IV ASDIRECTED ASHKAN Last Admin: 01/24/21 19:47 Dose: 75 mls/hr Documented by: Lorazepam (Lorazepam 0.5 Mg Tab) 0.5 mg PO Q12H PRN PRN Reason: Dizziness Meclizine HCl (Meclizine 12.5 Mg Tab) 12.5 mg PO ONETIME ONE Stop: 01/24/21 13:33 Last Admin: 01/24/21 13:36 Dose: 12.5 mg Documented by: Meclizine HCl (Meclizine 25 Mg Tab.Chew) 25 mg PO Q12H PRN PRN Reason: Dizziness Ondansetron HCl (Ondansetron 4 Mg/2 Ml Sdv) 4 mg IVPUSH ONETIME ONE Stop: 01/24/21 10:13 Last Admin: 01/24/21 10:19 Dose: 4 mg Documented by: Ondansetron HCl (Ondansetron 4 Mg Tab.Dis) 4 mg PO Q4H PRN PRN Reason: nausea, able to take PO Ondansetron HCl (Ondansetron 4 Mg/2 Ml Sdv) 4 mg IV Q4H PRN PRN Reason: Nausea/Vomiting Last Admin: 01/24/21 19:47 Dose: 4 mg Documented by: Potassium Bicarbonate (Potassium Bicarbonate/Cit Ac 20 Meq Effervescent Tab) 20 meq PO ONETIME ONE Stop: 01/24/21 21:31 Last Admin: 01/24/21 22:31 Dose: 20 meq Documented by: Sodium Chloride (Sodium Chloride 0.9% 10 Ml Syringe) 10 ml FLUSH ASDIRECTED PRN PRN Reason: Keep Vein Open Last Admin: 01/24/21 10:19 Dose: 10 ml Documented by: Temazepam (Temazepam 7.5 Mg Cap) 7.5 mg PO BEDTIME PRN PRN Reason: Sleep
== END 2021-01-25 12:30 | disposition home or self-care (01) ==
LOC: JD.ED 09:54 → JD.MS 16:51
PROVIDERS: ADMIT Internal Medicine; ATTEND Internal Medicine
DX: R42 Dizziness and giddiness (principal); R11.2 Nausea with vomiting, unspecified; E86.0 Dehydration; D64.9 Anemia, unspecified; E87.6 Hypokalemia; Z79.899 Other long term (current) drug therapy; Z20.822 Contact with and (suspected) exposure to COVID-19
CPT/HCPCS: 36415; 70551; 80048; 80053; 81001; 83690; 83735; 84702; 85025; 87635; 96365; 96375; 96376; 97161; 99285; A9270; G0378; J2405; J2550; J3490; J7030; 99284; U0002

== ENCOUNTER 2021-12-12 09:39 | Emergency (ER) | payer MEDICAID | END 2021-12-12 13:12 | disposition home or self-care (01) | LOC: JD.ED 09:39 | DX: O20.9 Hemorrhage in early pregnancy, unspecified (principal); Z3A.01 Less than 8 weeks gestation of pregnancy | CPT/HCPCS: 36415; 76817; 76817-26; 80053; 81003; 84702; 85025; 86900; 86901; 99284-25; J2790 ==

== ENCOUNTER 2021-12-26 14:52 | Emergency (ER) | payer MEDICAID | END 2021-12-26 17:29 | disposition home or self-care (01) | LOC: JD.ED 14:52 | DX: O03.4 Incomplete spontaneous abortion without complication (principal); E66.9 Obesity, unspecified; Z68.41 Body mass index [BMI] 40.0-44.9, adult; Z3A.01 Less than 8 weeks gestation of pregnancy; Z79.899 Other long term (current) drug therapy | CPT/HCPCS: 36415; 76817; 76817-26; 84702; 85025; 99283; 99284-25 ==